=== PATIENT | female | born 1980 | race Caucasian/White ===

== ENCOUNTER 2019-02-28 19:34 | Emergency (ER) | payer OTHER ==
[~2019-02-28] VITALS: Ht 154.9 cm; Wt 52.3 kg
[~2019-02-28 19:34] MED LIST: ACET1TAB55 PO; ACTI300C PO; ADDE20TA PO; ADDE30CA PO; CELE40TA PO; IBUP1TAB7 PO; LAMI1TAB8 PO; LORA2TA PO; METFORMIN PO; NEXI40GR PO; PRENTAB7 PO; PRIL40CA PO; URSO300C3 PO; VITAPRTA PO
[2019-02-28] MEDS ORDERED: CITA40TA4 (19:41)
[2019-02-28] MEDS ORDERED: LAMO100T (19:41)
[2019-02-28] MEDS ORDERED: DEXTROAMP-AMPHETAMIN (19:41)
[2019-02-28] MEDS ORDERED: DEPO150I (19:41)
[2019-02-28] MEDS ORDERED: ADDE30CA3 (19:41)
[2019-02-28] MEDS ORDERED: ALPR2TAB3 (19:41)
[2019-02-28] MEDS ORDERED: NS 1,000 ML IV ONE (20:15)
[2019-02-28] MEDS ORDERED: KETOROLAC 30 MG/ML VIAL (J1885) IV ONE (20:15)
[2019-02-28 20:21] LABS: HEMATOCRIT 43.6 % (36.0-47.0); HEMOGLOBIN 14.8 g/dl (12.0-15.5); MEAN CORPUSCULAR HEMOGLOBIN 31.2 pg (27.0-33.0); MEAN CORPUSCULAR HGB CONC 33.9 g/dl (32.0-36.5); PLATELET COUNT, AUTOMATED 462 10^3/uL (150-450); RED BLOOD COUNT 4.74 10^6/uL (4.00-5.40); WHITE BLOOD COUNT 13.7 10^3/uL (4.0-10.0)
[2019-02-28 20:24] LABS: HCG, SERUM QUALITATIVE NEGATIVE (NEGATIVE)
[2019-02-28 20:29] LABS: AMORPHOUS SEDIMENT SMALL (NEGATIVE); APPEARANCE, URINE CLOUDY (CLEAR); BACTERIA, URINE AUTO 2+ (NEGATIVE); BILIRUBIN, URINE AUTO NEGATIVE (NEGATIVE); BLOOD, URINE BLOOD NEGATIVE (NEGATIVE); COLOR, URINE YELLOW (YELLOW); GLUCOSE, URINE (UA) AUTO NEGATIVE (NEGATIVE); KETONE, URINE AUTO NEGATIVE (NEGATIVE); LEUKOCYTE ESTERASE, URINE AUTO 2+ (NEGATIVE); MUCUS, URINE SMALL (NEGATIVE); NITRITE, URINE AUTO NEGATIVE (NEGATIVE); PROTEIN, URINE AUTO NEGATIVE (NEGATIVE); RBC, URINE AUTO 1 /HPF (0-3); SQUAMOUS EPITHELIAL CELL UR AU 22 /HPF (0-6); UROBILINOGEN, URINE AUTO 0.2 mg/dL (0.0-2.0); WBC, URINE AUTO 5 /HPF (0-3)
[2019-02-28 20:32] LABS: ALT/SGPT 13 U/L (12-78); BILIRUBIN,DIRECT < 0.1 MG/DL (0.0-0.2); BILIRUBIN,TOTAL 0.2 MG/DL (0.2-1.0); BLOOD UREA NITROGEN 7 MG/DL (7-18); CALCIUM LEVEL 8.7 MG/DL (8.5-10.1); CARBON DIOXIDE LEVEL 28 MEQ/L (21-32); CHLORIDE LEVEL 108 MEQ/L (98-107); CREATININE FOR GFR 0.68 MG/DL (0.55-1.30); GLOMERULAR FILTRATION RATE > 60.0 (>60); GLUCOSE, FASTING 100 MG/DL (70-100); LIPASE 118 U/L (73-393); POTASSIUM SERUM 3.8 MEQ/L (3.5-5.1); SODIUM LEVEL 142 MEQ/L (136-145); TOTAL PROTEIN 7.3 GM/DL (6.4-8.2)
[2019-02-28 20:37] LABS: BASOPHILS 1 % (0-4); EOSINOPHILS 1 % (0-5); LYMPHOCYTES 39 % (16-52); MONOCYTES 3 % (0-8); NEUTROPHILS 56 % (35-75)
[2019-02-28 20:42] LABS: PLATELET ESTIMATE INCREASED (NORMAL)
[2019-02-28] MEDS: GASTROGRAFIN SOLUTION 30ML PO SCH ×2 (20:50→21:20)
[2019-02-28] MEDS ORDERED: ISOVUE-370 76% 100ML VIAL (Q9967) As Ordered ONE (20:50)
--- NOTE | 2019-02-28 23:19 | REPVR ---
EXAM: CT Abdomen and Pelvis With Contrast EXAM DATE/TIME: 02/28/2019 10:24 PM CLINICAL HISTORY: 38 years old, female; Other: Rlq pain TECHNIQUE: Imaging protocol: Axial computed tomography images of the abdomen and pelvis with intravenous contrast. Coronal and sagittal reformatted images were created and reviewed. Radiation optimization: All CT scans at this facility use at least one of these dose optimization techniques: automated exposure control; mA and/or kV adjustment per patient size (includes targeted exams where dose is matched to clinical indication); or iterative reconstruction. Contrast material: ISOVUE 370; Contrast volume: 100 ml; Contrast route: IV; COMPARISON: CT ABD PELVIS WITH CONTRAST 12/02/2012 10:52 PM FINDINGS: Lungs: Clear lung bases. Heart: The heart is normal in size. ABDOMEN: Liver: The liver appears within the range of normal. Gallbladder and bile ducts: There is some edema or fluid along the margin of the gallbladder and this can be seen with cholecystitis. Recommend correlation with a HIDA scan. Normal common bile duct. Pancreas: Normal appearing pancreas. Spleen: Normal spleen. Adrenals: Normal adrenal glands. Kidneys and ureters: There is enhancement of both kidneys. Stomach and bowel: The cecum is in the right pelvis. There is contrast throughout the small bowel with no evidence of obstruction. Appendix: Normal appearing appendix. PELVIS: Bladder: Normal appearing urinary bladder. Reproductive: There is thickening of the cervix and this should be assessed clinically. There is a large complex mass posterior to the uterus extending superiorly to the uterine fundus and inferiorly to the cervix. Probably represents a mass of ovarian origin from the right ovary. This measures 9 CM by 9 CM by 9 CM. This is not seen on the examination of 2012. This mass has both solid and cystic/complex characteristics. Considerations would include cystadenoma and cystadenocarcinoma, large teratoma or dermoid, germ cell tumor. The left ovary appears within the range of normal. Vasculature: There is opacification of the SMA. The aorta is normal in size and opacifies. Lymph nodes: Normal. No enlarged lymph nodes. Other findings: There is opacification of the SMV. It should be correlated with ultrasound and possibly MRI. IMPRESSION: 1. There is a linear band of low density possibly fluid along the margin of the gallbladder. This can be seen with cholecystitis. Suggest correlation with a HIDA scan and the clinical symptoms. 2. Directly posterior to the uterus from the fundus to the cervix is a very large complex mass measuring 9 CM by 9 CM by 9 CM. This mass is both cystic and solid. Differential considerations include cystadenoma, cystadenocarcinoma, teratoma, dermoid, germ cell tumor. Correlate with ultrasound and MRI. 3. Enlargement of the cervix recommend direct visualization. Electronically signed by: Wicho Gu On 02/28/2019 23:18:15 PM
[2019-02-28] MEDS ORDERED: NORCO 5/325MG TABLET (BULK FOR ED) PO ONE (23:45)
[2019-02-28 23:46] VITALS: BP 152/84
--- NOTE | 2019-03-02 05:54 | ED PDOC ---
Post-Departure Follow-Up dr sessions, ft drum ob , faxed formal report of ct abd/p for fu Patience Salinas MD March 02, 2019 05:53
== END 2019-02-28 23:55 | disposition home or self-care (01) ==
LOC: M ED 19:34
DX: N83.299 Other ovarian cyst, unspecified side (principal); R93.5 Abnormal findings on diagnostic imaging of other abdominal regions, including retroperitoneum; F31.9 Bipolar disorder, unspecified; K80.20 Calculus of gallbladder without cholecystitis without obstruction; N88.8 Other specified noninflammatory disorders of cervix uteri; Z79.899 Other long term (current) drug therapy
CPT/HCPCS: 74177; 80048; 80076; 81001; 83690; 84703; 85025; 87086; 96374; 99284; J1885; Q9963; Q9967